=== PATIENT | female | born 1945 | race Caucasian/White ===

== ENCOUNTER 2020-06-04 09:03 | Outpatient (CLI) | payer MEDICARE, OTHER, SELFPAY ==
--- NOTE | 2020-06-04 09:10 | CT_ITS ---
WS: [id number] CT scan of the abdomen and pelvis without IV contrast. Additional two-dimensional coronal and sagitt al reconstruction was performed. 06/04/2020 Clinical Data: PAIN ABDOMINAL, RLQ Comparison: None. DLP: 1127.[address] scans at [facility] use at least one of these dose optimization techniques: automat ed exposure control; mA and/or kV adjustment per patient size (includes targeted exams where dose is matched to clinical indication); or iterative reconstruction. Findings: The lower lungs show no nodules, masses or effusions. There is a small hiatal hernia. There is a calc ified granuloma in the right lower lobe. There are clips in the gallbladder fossa from a cholecystect huong. The liver, spleen, adrenal glands and pancreas are normal. The kidneys show no cysts, masses, hydronephrosis or renal calculi. The abdominal aorta is normal in size with calcification in the. No appendicitis or diverticulitis is seen. Oral contrast is in the stomach and small bowel and there is no bowel dilatation. No abscess, adenopathy, ascites, mass, obstruction or free air is seen. The bladder is unremarkable. The uterus is absent. No inguinal hernia is seen. The bones of the lower thorax, lumbar spine, pelvis, and hips show only moderate osteoarthritis of th e lower thoracic and all the lumbar vertebral bodies. CT/CT abdomen pelvis wo con [id number] Impression: Negative for acute intra-abdominal or pelvic abnormalities.
[2020-06-04] MEDS: iohexol 300 mg/mL 50 mL Btl PO (09:36)
== END 2020-06-04 09:04 | disposition home or self-care (01) ==
LOC: RADWPI 09:13
PROVIDERS: PCP Nurse Practitioner; Visit Provider Nurse Practitioner
DX: R10.31 Right lower quadrant pain (principal)
CPT/HCPCS: 74176; Q9967

== ENCOUNTER 2020-07-21 12:14 | Outpatient (CLI) | payer MEDICARE, OTHER, SELFPAY ==
--- NOTE | 2020-07-21 12:32 | XR_ITS ---
WS: [id number] Exam: XR hand LT min 3V* [id number] Date/Time of Exam: 07/21/2020 12:32 PM Reason For Exam: PAIN IN LEFT HAND LEFT WRIST No acute fracture or dislocation. There is moderate degenerative change at the carpometacarpal joint of the thumb and the intercarpal joints in the region of the navicular and greater and lesser multang ular. There are also advanced degenerative changes of the IP joints. There is degenerative narrowing of the MP joints. Normal soft tissues. XR/XR hand LT min 3V* [id number] IMPRESSION: 1. Degenerative changes. No fracture or dislocation.
== END 2020-07-21 12:15 | disposition home or self-care (01) ==
PROVIDERS: PCP Nurse Practitioner; Visit Provider Nurse Practitioner Family
DX: M79.642 Pain in left hand (principal); M25.532 Pain in left wrist
CPT/HCPCS: 73130

== ENCOUNTER 2021-06-22 13:28 | Outpatient (CLI) | payer MEDICARE, OTHER, SELFPAY ==
--- NOTE | 2021-06-22 13:49 | MR_ITS ---
WS: [id number] MRI LEFT SHOULDER HISTORY: PAIN IN LEFT SHOULDER COMPARISON: None available. TECHNIQUE: Multiplanar sequences of the shoulder joint are submitted. Moderate AC joint hypertrophy. Soft tissue and bone hypertrophy encroaching upon the distal supraspin atus muscle. Along the inferior surface of the AC joint is a lobulated cyst with septation. Moderate distention of the subacromial and subdeltoid bursa with complex fluid. There is synovial thickening s urrounding the humeral head and extending along the supraspinatus muscle and tendon. There is a small osteophyte from the undersurface of the distal acromion with mild encroachment. No os acromion. Chauncey ps tendon remains normally positioned in the bicipital groove although there is increase fluid along the tendon sheath. No rotator cuff tears are identified. There is a small amount of fluid and edema near the rotator cuf f interval. No muscle atrophy or edema. Irregularity with subchondral cystic changes along the animal shelter worker ior lateral humeral head and towards the superior humeral head. The surface of the humeral head appea rs slightly fragmented and there may be a small loose body within the fluid surrounding the humeral h ead along with synovitis. No labral tear is confirmed. MR/MR shoulder LT wo con* [id number] IMPRESSION: 1. Moderate AC joint arthritis with mild encroachment upon the supraspinatus m uscle and tendon. 2. Moderate distention of the subacromial and subdeltoid bursa with increased fluid with septations and synovial thickening surrounding the humeral head. Lik christin representing a complex synovial cyst. These cysts can often be associated w ith fluid from the AC joint or rotator cuff tear. 3. No rotator cuff tear.
== END 2021-06-22 13:29 | disposition home or self-care (01) ==
PROVIDERS: PCP Nurse Practitioner; Visit Provider Nurse Practitioner
DX: M19.012 Primary osteoarthritis, left shoulder (principal)
CPT/HCPCS: 73221

== ENCOUNTER 2021-09-10 12:17 | Outpatient (CLI) | payer MEDICARE, OTHER, SELFPAY ==
--- NOTE | 2021-09-10 12:35 | XR_ITS ---
WS: [id number] Left knee, AP and lateral views, 09/10/2021 Clinical Data: CHRONIC OSTEOARTHRITIS Comparison: None. Findings: There is medial joint compartment narrowing. There is spurring of the medial lateral femoral condyles and of the medial tibial plateau. There is posterior and anterior spurring of the left patella. Ther e are no fractures or dislocations. The soft tissues are normal. XR/XR knee LT 1-2V [id number] Impression: Moderate osteoarthritis of the left knee. Kellgren-Jose Classification: grade 3 (moderate): moderate multiple osteoph ytes, definite narrowing of joint space and some sclerosis and possible deformi ty of bone ends
--- NOTE | 2021-09-10 12:35 | XR_ITS ---
WS: [id number] Right knee, AP and lateral views, 09/10/2021 Clinical Data: CHRONIC OSTEOARTHRITIS Comparison: None. Findings: There is medial joint compartment narrowing. There are spurs of the lateral tibial plateau and latera l femoral condyle. The posterior patella shows irregularity. There are no fractures or dislocations. The soft tissues are normal. XR/XR knee RT 1-2V [id number] Impression: Moderate to severe osteoarthritis of the right knee. Kellgren-Jose Classification: grade 3 (moderate): moderate multiple osteoph ytes, definite narrowing of joint space and some sclerosis and possible deformi ty of bone ends
== END 2021-09-10 12:18 | disposition home or self-care (01) ==
LOC: RAD 12:27
PROVIDERS: PCP Nurse Practitioner; Visit Provider Nurse Practitioner
DX: M17.0 Bilateral primary osteoarthritis of knee (principal)
CPT/HCPCS: 73560

== ENCOUNTER 2022-10-13 11:01 | Outpatient (CLI) | payer MEDICARE, OTHER, SELFPAY ==
--- NOTE | 2022-10-13 11:23 | MR_ITS ---
WS: [id number] EXAMINATION: MR shoulder LT wo con* [id number] ORDER DATE: 10/13/2022 11:52 AM COMPARISON: June 22, 2021 HISTORY: PAIN IN LEFT SHOULDER. TECHNIQUE: Axial T2 STAR, coronal proton density fat sat, sagittal T2 fat sat, sagittal proton densit y fat sat, axial proton density fat sat, coronal T2 fat sat, and coronal T1 performed. After contrast , axial T1 fat sat, coronal T1 fat sat, and sagittal T1 fat sat were performed. FINDINGS: Moderate degenerative arthritis AC joint with a small amount of subacromial and subdeltoid fluid. Adv anced narrowing at the glenohumeral articulation. Chronic thinning of the distal supraspinatus with s mall insertional tear. No significant tendon retraction. Tendinopathy distal supraspinatus. Normal infraspinatus. Normal teres minor. Subscapularis tendon appears intact. Biceps tendon appears intact within the bicipital groove. Degenerative fraying of the glenoid labrum. Subchondral cystic ch hitesh along the greater tuberosity. No acute fractures. Previously described synovial cyst along the i nferior AC joint measuring 10 x 13 mm similar to previous. Biceps labral anchor appears intact. MR/MR shoulder LT wo con* [id number] IMPRESSION: 1. Moderate degenerative arthritis AC joint with mild edema and a small amount of subacromial fluid. Impingement on the distal supraspinatus. 2. Small tear distal supraspinatus insertion. Tendinopathy distal supraspinatu s. 3. Synovial ganglion cyst deep to the AC joint measuring 10 x 13 mm unchanged. 4. Rotator cuff is otherwise intact. 5. Normal biceps tendon in the bicipital groove. 6. No other significant changes.
== END 2022-10-13 11:02 | disposition home or self-care (01) ==
LOC: RAD 11:04
PROVIDERS: PCP Nurse Practitioner Family; Visit Provider Orthopaedic Surgery
DX: M19.012 Primary osteoarthritis, left shoulder (principal); M67.412 Ganglion, left shoulder
CPT/HCPCS: 73221